=== PATIENT | female | born 1985 ===

== ENCOUNTER 2017-07-26 18:04 | Emergency (ER) | payer SELFPAY ==
[2017-07-26 18:12] VITALS: BP 140/96; PULSE 78; RESP 20; TEMP 98.1; O2SAT 98
--- NOTE | 2017-07-26 20:15 | C.PDOC ---
History Of Present Illness 31 y/o female presents to the ED complaining of right foot pain, onset today. Patient states she tripped and fell earlier today at work. She is ambulatory but pain worsens with movement. No changes in sensation or focal weakness. Time Seen by Provider: 07/26/17 18:17 Chief Complaint (Nursing): Lower Extremity Problem/Injury History Per: Patient History/Exam Limitations: no limitations Onset/Duration Of Symptoms: Hrs Current Symptoms Are (Timing): Still Present Past Medical History Reviewed: Historical Data, Nursing Documentation, Vital Signs Vital Signs: Last Vital Signs Temp 98.1 F 07/26/17 18:07 Pulse 78 07/26/17 18:07 Resp 20 07/26/17 20:29 BP 140/96 H 07/26/17 18:07 Pulse Ox 98 07/26/17 20:23 - Medical History PMH: No Chronic Diseases Surgical History: Tonsillectomy Family History: States: No Known Family Hx - Social History Hx Tobacco Use: No Hx Alcohol Use: Yes Hx Substance Use: No - Immunization History Hx Tetanus Toxoid Vaccination: No Hx Influenza Vaccination: No Hx Pneumococcal Vaccination: No Review Of Systems Except As Marked, All Systems Reviewed And Found Negative. Musculoskeletal: Positive for: Foot Pain Neurological: Negative for: Weakness, Numbness Physical Exam - Physical Exam Appears: Non-toxic, No Acute Distress Skin: Normal Color, Warm, Dry Head: Atraumatic, Normacephalic Eye(s): bilateral: Normal Inspection, PERRL, EOMI Oral Mucosa: Moist Chest: Symmetrical Respiratory: No Accessory Muscle Use Extremity: Normal ROM, Tenderness (to right medial foot), No Deformity, No Swelling (or ecchymosis) Pulses: Left Dorsalis Pedis: Normal, Right Dorsalis Pedis: Normal Neurological/Psych: Oriented x3, Normal Speech, Normal Motor, Normal Sensation ED Course And Treatment O2 Sat by Pulse Oximetry: 98 (RA) Pulse Ox Interpretation: Normal - Other Rad XR R FOOT X-Ray: Interpreted by Me, Viewed By Me Interpretation: No fracture, no dislocation Progress Note: X-ray obtained and is negative. Patient given ortho shoe and crutches. Stable for d/c home. Referred to podiatry clinic for further evaluation. Disposition Counseled Patient/Family Regarding: Studies Performed, Diagnosis, Need For Followup, Rx Given - Disposition Referrals: Timi Brown DPM [Staff Provider] - Disposition: HOME/ ROUTINE Disposition Time: 20:12 Condition: STABLE Additional Instructions: Follow up with Fire Apparatus Sprinkler Inspector within 1-2 days. Return to ED if feel worse. 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 - Scribe Statement The provider has reviewed the documentation as recorded by the Scribe (Patrizia Cohen) All medical record entries made by the Scribe were at my direction and personally dictated by me. I have reviewed the chart and agree that the record accurately reflects my personal performance of the history, physical exam, medical decision making, and the department course for this patient. I have also personally directed, reviewed, and agree with the discharge instructions and disposition.
--- NOTE | 2017-07-27 08:33 | RAD ---
PROCEDURE: Right Foot Radiographs. HISTORY: injury COMPARISON: None. FINDINGS: BONES: Normal. No fracture. JOINTS: Normal. SOFT TISSUES: Normal. OTHER FINDINGS: None. IMPRESSION: Normal right foot radiographs.
== END 2017-07-26 20:29 | disposition home or self-care (01) ==
LOC: C.ER 18:04
DX: S93.601A Unspecified sprain of right foot, initial encounter (principal); W01.0XXA Fall on same level from slipping, tripping and stumbling without subsequent striking against object, initial encounter; Y92.89 Other specified places as the place of occurrence of the external cause; Y99.0 Civilian activity done for income or pay

== ENCOUNTER 2017-08-15 16:36 | Emergency (ER) | payer SELFPAY ==
[2017-08-15 16:55] VITALS: BP 129/85; PULSE 93; RESP 16; TEMP 98.4; O2SAT 99
[2017-08-15] MEDS ORDERED: Naproxen 550 mg Tab PO STA (18:14)
[2017-08-15] MEDS ORDERED: Naproxen 550 mg Tab PO ONE (18:19)
--- NOTE | 2017-08-15 21:04 | C.PDOC ---
History Of Present Illness 31 y/o female presents to the ED with c/o lower back pain which began 4 days ago. Pain worse with movement. No radiation of pain. 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 Patient went to work four days ago, after which her pain began. Patient urinary/bowel incontinence, pain with urination, extremity numbness/ weakness, or recent falls. Time Seen by Provider: 08/15/17 17:44 Chief Complaint (Nursing): Back Pain History Per: Patient History/Exam Limitations: no limitations Onset/Duration Of Symptoms: Days Current Symptoms Are (Timing): Still Present Quality Of Discomfort: "Pain" Previous Symptoms: Back Pain Associated Symptoms: denies: Incontinence, New Weakness, New Numbness Additional History Per: Patient Past Medical History Reviewed: Historical Data, Nursing Documentation, Vital Signs Vital Signs: Last Vital Signs Temp 98.4 F 08/15/17 16:53 Pulse 93 H 08/15/17 16:53 Resp 16 08/15/17 16:53 BP 129/85 08/15/17 16:53 Pulse Ox 99 08/15/17 21:07 - Medical History PMH: No Chronic Diseases Surgical History: Tonsillectomy Family History: States: Unknown Family Hx - Social History Hx Tobacco Use: No Hx Alcohol Use: Yes Hx Substance Use: No - Immunization History Hx Tetanus Toxoid Vaccination: No Hx Influenza Vaccination: No Hx Pneumococcal Vaccination: No Review Of Systems Constitutional: Negative for: Fever, Chills Genitourinary: Negative for: Dysuria, Incontinence Musculoskeletal: Positive for: Back Pain Neurological: Negative for: Weakness, Numbness Physical Exam - Physical Exam Appears: Non-toxic, No Acute Distress Skin: Normal Color, Warm, Dry Head: Atraumatic, Normacephalic Eye(s): bilateral: Normal Inspection, EOMI Nose: Normal Oral Mucosa: Moist Neck: Normal ROM, Supple, Other ((+) b/l trapezius tenderness) Chest: Symmetrical, No Deformity, No Tenderness Cardiovascular: Rhythm Regular Respiratory: Normal Breath Sounds, No Accessory Muscle Use Back: No CVA Tenderness, No Vertebral Tenderness, Paraspinal Tenderness (b/l paralumbar tenderness) Extremity: Normal ROM, Capillary Refill (less than 2 seconds ) Neurological/Psych: Oriented x3, Normal Speech, Normal Cognition, Normal Sensation Gait: Steady ED Course And Treatment O2 Sat by Pulse Oximetry: 99 (on RA) Pulse Ox Interpretation: Normal Progress Note: Flexeril PO and Naproxen PO administered. Offered XR, pt declines. Patient is resting comfortably, no fever, no bony tenderness, no numbness, no weakness, or abdominal pain. Patient is ambulatory in the emergency department with no signs of discomfort. Patient was advised to follow up with their physician in 1-2 days. Disposition - Disposition Referrals: [facility] at [facility] [Outside] Disposition: HOME/ ROUTINE Disposition Time: 16:30 Condition: STABLE Additional Instructions: Follow up with PMD in 1-2 days. Return to ER if symptoms persist or worsen. 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 - Scribe Statement The provider has reviewed the documentation as recorded by the Scribe (She Pena) All medical record entries made by the Scribe were at my direction and personally dictated by me. I have reviewed the chart and agree that the record accurately reflects my personal performance of the history, physical exam, medical decision making, and the department course for this patient. I have also personally directed, reviewed, and agree with the discharge instructions and disposition.
== END 2017-08-15 18:36 | disposition home or self-care (01) ==
LOC: C.ER 16:36
DX: S39.012A Strain of muscle, fascia and tendon of lower back, initial encounter (principal); X50.0XXA Overexertion from strenuous movement or load, initial encounter; Y92.89 Other specified places as the place of occurrence of the external cause

== ENCOUNTER 2017-11-01 17:36 | Emergency (ER) | payer MEDICAID, OTHER ==
[2017-11-01 17:49] VITALS: BP 145/95; PULSE 99; RESP 20; TEMP 99; O2SAT 98
--- NOTE | 2017-11-01 17:57 | C.PDOC ---
History Of Present Illness 31 y/o female c/o white vaginal discharge for 2-3 days. reports she is sexually active with one partner and uses condoms. no urinary symptoms, no abdominal pain. no fever or chills. Time Seen by Provider: 11/01/17 17:51 Chief Complaint (Nursing): Female Genitourinary History Per: Patient History/Exam Limitations: no limitations Onset/Duration Of Symptoms: Days Current Symptoms Are (Timing): Still Present Past Medical History Reviewed: Historical Data, Nursing Documentation, Vital Signs Vital Signs: Last Vital Signs Temp 99 F 11/01/17 17:46 Pulse 99 H 11/01/17 17:46 Resp 20 11/01/17 17:46 BP 145/95 H 11/01/17 17:46 Pulse Ox 98 11/02/17 12:08 - Medical History PMH: No Chronic Diseases Surgical History: Tonsillectomy Family History: States: No Known Family Hx - Social History Hx Tobacco Use: No Hx Alcohol Use: Yes Hx Substance Use: No - Immunization History Hx Tetanus Toxoid Vaccination: No Hx Influenza Vaccination: No Hx Pneumococcal Vaccination: No Review Of Systems Constitutional: Negative for: Fever, Chills Gastrointestinal: Negative for: Nausea, Vomiting, Abdominal Pain Genitourinary: Positive for: Vaginal Discharge. Negative for: Dysuria, Incontinence, Hematuria, Vaginal Bleeding Musculoskeletal: Negative for: Back Pain Skin: Negative for: Rash Physical Exam - Physical Exam Appears: Non-toxic, No Acute Distress Skin: Warm, Dry, No Rash Head: Atraumatic, Normacephalic Eye(s): bilateral: Normal Inspection Oral Mucosa: Moist Neck: Supple Chest: No Tenderness Cardiovascular: Rhythm Regular Respiratory: Normal Breath Sounds, No Rales, No Rhonchi, No Wheezing Gastrointestinal/Abdominal: Soft, No Tenderness, No Guarding, No Rebound Pelvic: No Vaginal Bleeding, Vaginal Discharge (scant white with mild fishy odor ), No Cervical Motion Tenderness, No Adnexal Tenderness, Other (chaperoned by ALANNA Kwok) Neurological/Psych: Oriented x3, Normal Speech, Normal Cognition ED Course And Treatment O2 Sat by Pulse Oximetry: 98 (RA) Pulse Ox Interpretation: Normal Medical Decision Making Medical Decision Making: pt with vag discharge x 2 days. mild fishy odor on exam, will tx for bv with gynecologist f/u Disposition Counseled Patient/Family Regarding: Studies Performed, Diagnosis, Need For Followup, Rx Given - Disposition Disposition: HOME/ ROUTINE Disposition Time: 19:20 Condition: GOOD Additional Instructions: Use metrogel as prescrbied in vagina at bedtime for 5 days. 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 - Scribe Statement The provider has reviewed the documentation as recorded by the Tavo Nickerson All medical record entries made by the Tavo were at my direction and personally dictated by me. I have reviewed the chart and agree that the record accurately reflects my personal performance of the history, physical exam, medical decision making, and the department course for this patient. I have also personally directed, reviewed, and agree with the discharge instructions and disposition.
[2017-11-01 18:43] LABS: SQUAMOUS EPITHIAL 32 /hpf (0-5); URINE BACTERIA OCC (<OCC); URINE BILIRUBIN NEGATIVE (NEGATIVE); URINE BLOOD 2+ (NEGATIVE); URINE CLARITY Hazy (Clear); URINE COLOR Amber (YELLOW); URINE GLUCOSE (UA) NORMAL (Normal); URINE LEUKOCYTE ESTERASE NEG Leu/uL (Negative); URINE PROTEIN 1+ mg/dL (NEGATIVE)
== END 2017-11-01 19:34 | disposition home or self-care (01) ==
LOC: C.ER 17:36
DX: N76.0 Acute vaginitis (principal)

== ENCOUNTER 2018-02-13 14:22 | Emergency (ER) | payer MEDICAID, OTHER ==
[2018-02-13 14:47] VITALS: O2SAT 100
--- NOTE | 2018-02-13 15:22 | C.PDOC ---
History Of Present Illness 32 yo female w/o significant PMHx come inf or evaluation of cold sx associated with low grade fever, nasal congestion, sore throat, dry cough developed for past 3-4 days. Pt reports, " since yesterday developed some chest tightness on cough since today AM". Otherwise, pt denies high fever, chills, headache, dizziness, neck pain, drooling, dysphagia, dyspnea, SOB, wheezing, abd. pain, V/D, UTi sx. Ambulate to Ed for evaluation, not in any apparent distress. Time Seen by Provider: 02/13/18 14:57 Chief Complaint (Nursing): Cough, Cold, Congestion History Per: Patient Past Medical History Reviewed: Historical Data, Nursing Documentation, Vital Signs Vital Signs: Last Vital Signs Temp 98.4 F 02/13/18 14:43 Pulse 71 02/13/18 14:43 Resp 18 02/13/18 14:43 BP 137/88 02/13/18 14:43 Pulse Ox 100 02/13/18 14:43 - Medical History PMH: Bronchitis Surgical History: Tonsillectomy Family History: States: Unknown Family Hx - Social History Hx Tobacco Use: No Hx Alcohol Use: Yes Hx Substance Use: No - Immunization History Hx Tetanus Toxoid Vaccination: No Hx Influenza Vaccination: No Hx Pneumococcal Vaccination: No Review Of Systems Except As Marked, All Systems Reviewed And Found Negative. Constitutional: Positive for: Malaise. Negative for: Fever, Chills ENT: Positive for: Nose Congestion, Throat Pain. Negative for: Ear Discharge, Nose Discharge, Throat Swelling Cardiovascular: Negative for: Chest Pain, Palpitations Respiratory: Positive for: Cough. Negative for: Shortness of Breath, Wheezing Gastrointestinal: Negative for: Nausea, Vomiting, Abdominal Pain, Diarrhea Genitourinary: Negative for: Dysuria Musculoskeletal: Negative for: Neck Pain Skin: Negative for: Rash Neurological: Negative for: Headache, Dizziness Physical Exam - Physical Exam Appears: Well, Non-toxic, No Acute Distress Skin: Normal Color, Warm, Dry, No Rash Head: Normacephalic Eye(s): bilateral: PERRL Nose: No Flaring, Discharge (scant clear with congestion) Oral Mucosa: Moist, No Drooling Tongue: Normal Appearing Lips: Normal Appearing Throat: Erythema (mild B/L), No Exudate, No Drooling Neck: Trachea Midline, Supple Cardiovascular: Rhythm Regular, No Murmur, No JVD Respiratory: No Decreased Breath Sounds, No Accessory Muscle Use, No Stridor, No Wheezing Gastrointestinal/Abdominal: Soft, No Tenderness, No Distention, No Guarding, No Rebound Back: No CVA Tenderness Extremity: Normal ROM, No Deformity, No Swelling Neurological/Psych: Oriented x3, Normal Speech ED Course And Treatment O2 Sat by Pulse Oximetry: 100 Pulse Ox Interpretation: Normal - Radiology CXR: Interpreted by Me, Read By Radiologist CXR Interpretation: Yes: No Acute Disease Progress Note: On re-eval, pt appears is afebrile, hemodynamicaly stable. NOn- toxic. PuslEOx 100% RA. neck: Supple, (-) meningeal sign. ENT: no acute findings. Lungs: CTA B/L, BS equal B/L. Abd: benign, (-) guaridng, (-) rebound. back: (-) CVA tenderness. neuorlogicaly intact. CXR- normal study. Pt has clinical findings c/w acute bronchitis. Pt advised. ref. to f/u with PMD In2 -3 days for re-eavl. return if any worsening or new changes. Disposition Counseled Patient/Family Regarding: Studies Performed, Diagnosis, Need For Followup, Rx Given - Disposition Referrals: [facility] [Outside] Disposition: HOME/ ROUTINE Disposition Time: 15:21 Condition: STABLE Additional Instructions: Encourage fluids take medication as prescribed Follow up with PMD in2 -3 days for re-evaluation. return to ED if any worsening or new changes. Prescriptions: Azithromycin [Zithromax] 250 mg PO DAILY #4 tab Benzonatate [Tessalon Perle] 100 mg PO TID #14 capsule Prednisone [Deltasone] 20 mg PO DAILY #3 tablet Instructions: Acute Bronchitis Forms: [id number] (Irish) - Clinical Impression Clinical Impression: Bronchitis
--- NOTE | 2018-02-13 15:47 | RAD ---
HISTORY: Cough COMPARISON: Chest x-ray performed 04/06/16 TECHNIQUE: Chest PA and lateral FINDINGS: Examination limited by habitus. LUNGS: No focal consolidation. Please note that chest x-ray has limited sensitivity for the detection of pulmonary masses. PLEURA: No significant pleural effusion identified. No definite pneumothorax . CARDIOVASCULAR: Heart size appears within normal limits. No atherosclerotic calcification present. OSSEOUS STRUCTURES: Mild degenerative changes. VISUALIZED UPPER ABDOMEN: Unremarkable. OTHER FINDINGS: None. IMPRESSION: No focal consolidation identified.
[2018-02-13 16:05] VITALS: BP 130/86; PULSE 67; RESP 20; TEMP 97.6
== END 2018-02-13 16:08 | disposition home or self-care (01) ==
LOC: C.ER 14:22
DX: J20.9 Acute bronchitis, unspecified (principal)

== ENCOUNTER 2018-04-09 11:38 | Emergency (ER) | payer OTHER ==
[2018-04-09 11:46] VITALS: BP 133/78; PULSE 79; RESP 20; TEMP 97.8; O2SAT 100
--- NOTE | 2018-04-09 12:30 | C.PDOC ---
History Of Present Illness 32-year-old female presents to the ED for evaluation of sore throat which began four days ago. Patient reports sick contact with individuals in her house who have been positive for strep throat. She also reports associated fever and chills. Otherwise, patient denies chest pain, cough, shortness of breath, abdominal pain, vomiting, diarrhea. Time Seen by Provider: 04/09/18 11:46 Chief Complaint (Nursing): ENT Problem History Per: Patient History/Exam Limitations: no limitations Onset/Duration Of Symptoms: Days (4) Current Symptoms Are (Timing): Still Present Location Of Pain: Throat Sick Contacts (Context): Family Member(s) Associated Symptoms: Fever, Chills, Sore Throat. denies: Cough, Vomiting, D iarrhea Additional History Per: Patient Past Medical History Reviewed: Historical Data, Nursing Documentation, Vital Signs Vital Signs: Last Vital Signs Temp 97.8 F 04/09/18 11:46 Pulse 79 04/09/18 11:46 Resp 20 04/09/18 11:46 BP 133/78 04/09/18 11:46 Pulse Ox 100 04/09/18 11:46 - Medical History PMH: Bronchitis Surgical History: Tonsillectomy Family History: States: Unknown Family Hx - Social History Hx Tobacco Use: No Hx Alcohol Use: Yes Hx Substance Use: No - Immunization History Hx Tetanus Toxoid Vaccination: No Hx Influenza Vaccination: No Hx Pneumococcal Vaccination: No Review Of Systems Constitutional: Positive for: Fever, Chills ENT: Positive for: Throat Pain Cardiovascular: Negative for: Chest Pain Respiratory: Negative for: Cough, Shortness of Breath Gastrointestinal: Negative for: Vomiting, Diarrhea Physical Exam - Physical Exam Appears: Non-toxic, No Acute Distress Skin: Normal Color, Warm, Dry Head: Atraumatic, Normacephalic Eye(s): bilateral: Normal Inspection Ear(s): Bilateral: Normal Nose: Normal, No Discharge Oral Mucosa: Moist Throat: Erythema (mild), No Exudate Neck: Supple Lymphatic: Adenopathy (cervical) Chest: Symmetrical, No Deformity, No Tenderness Cardiovascular: Rhythm Regular, No Murmur Respiratory: Normal Breath Sounds, No Rales, No Rhonchi, No Wheezing Extremity: Normal ROM Neurological/Psych: Oriented x3, Normal Speech, Normal Cognition ED Course And Treatment O2 Sat by Pulse Oximetry: 100 (on RA) Pulse Ox Interpretation: Normal Medical Decision Making Medical Decision Making: Progress: Zithromax PO and Prednisone PO given. Disposition - Disposition Referrals: [facility] at [facility] [Outside] Disposition: HOME/ ROUTINE Disposition Time: 12:27 Condition: STABLE Additional Instructions: Follow up with the medical doctor/clinic within 1-2 days. Return if worsened. 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 - Scribe Statement The provider has reviewed the documentation as recorded by the Scribe (She Pena) All medical record entries made by the Scribe were at my direction and personally dictated by me. I have reviewed the chart and agree that the record accurately reflects my personal performance of the history, physical exam, medical decision making, and the department course for this patient. I have also personally directed, reviewed, and agree with the discharge instructions and disposition.
== END 2018-04-09 12:40 | disposition home or self-care (01) ==
LOC: C.ER 11:38
DX: J02.9 Acute pharyngitis, unspecified (principal)

== ENCOUNTER 2018-05-02 16:31 | Emergency (ER) | payer OTHER ==
[2018-05-02 16:40] VITALS: BP 132/86; PULSE 78; RESP 18; TEMP 98; O2SAT 98
--- NOTE | 2018-05-02 17:44 | C.PDOC ---
History Of Present Illness 32 y/o female presents to the ED complaining of cough and congestion. Patient was seen here on 04/09, diagnosed with throat infection, and treated with azithromycin and oral prednisone course. Patient now complains of SOB for the past week, with associated dry cough, congestion, and sinus headache. Stated she felt better after the antibiotics and then symptoms recurred. She denies any fever, chills, chest pain, nausea, vomiting, or other associated symptoms. She reports + sick contacts at home. Patient is not taking any medications for symptom relief. Time Seen by Provider: 05/02/18 16:53 Chief Complaint (Nursing): Cough, Cold, Congestion History Per: Patient History/Exam Limitations: no limitations Onset/Duration Of Symptoms: Days (7) Current Symptoms Are (Timing): Still Present Location Of Pain: Sinus/es Sick Contacts (Context): Family Member(s) Associated Symptoms: Cough, Sinus Drainage, Nasal Congestion. denies: Fever, Chills, Sore Throat, Sputum, Neck Pain, Myalgias, Nausea, Vomiting, Diarrhea Severity: Moderate Past Medical History Reviewed: Historical Data, Nursing Documentation, Vital Signs Vital Signs: Last Vital Signs Temp 98 F 05/02/18 16:36 Pulse 78 05/02/18 16:36 Resp 18 05/02/18 16:36 BP 132/86 05/02/18 16:36 Pulse Ox 98 05/02/18 16:36 - Medical History PMH: Bronchitis Surgical History: Tonsillectomy Family History: States: Unknown Family Hx - Social History Hx Tobacco Use: No Hx Alcohol Use: Yes Hx Substance Use: No - Immunization History Hx Tetanus Toxoid Vaccination: Yes Hx Influenza Vaccination: No Hx Pneumococcal Vaccination: No Review Of Systems Constitutional: Negative for: Fever, Chills, Weakness ENT: Positive for: Nose Discharge, Nose Congestion. Negative for: Ear Pain, Throat Pain Cardiovascular: Negative for: Chest Pain Respiratory: Positive for: Cough, Shortness of Breath Gastrointestinal: Negative for: Nausea, Vomiting, Abdominal Pain, Diarrhea Musculoskeletal: Negative for: Neck Pain Skin: Negative for: Rash Neurological: Positive for: Headache (frontal). Negative for: Dizziness Physical Exam - Physical Exam Appears: Well, Non-toxic, No Acute Distress, Other (Vitals stable, afebrile) Skin: Normal Color, Warm, Dry Head: Atraumatic, Normacephalic, No Tenderness (severe turbinate hypertrophy on the left; moderate hypertrophy on right) Nose: Discharge (clear), Other (severe turbinate hypertrophy on left; moderate turbinate hypertrophy on right) Oral Mucosa: Moist Throat: No Erythema, No Exudate Neck: Normal ROM, Supple Lymphatic: Other (no cervical LAD) Chest: Symmetrical Cardiovascular: Rhythm Regular Respiratory: Normal Breath Sounds, No Wheezing Gastrointestinal/Abdominal: Soft, No Tenderness Neurological/Psych: Oriented x3, Normal Speech, Normal Cognition, Normal Sensation ED Course And Treatment O2 Sat by Pulse Oximetry: 98 Medical Decision Making Medical Decision Making: Initial Plan: Patient given 60mg Sudafed tab in the ED. Progress: On re-eval, patient reports improvement after taking Sudafed. Patient will be discharged home with rx for Sudafed and Normal Saline rinses for the congestion and sinus headache. Instructed patient to return for worsening or persistent symptoms. Advised to f ollow up with PMD. Patient verbalizes understanding and is in agreement with discharge plan. Disposition Counseled Patient/Family Regarding: Diagnosis, Need For Followup, Rx Given - Disposition Referrals: [facility] [Outside] Disposition: HOME/ ROUTINE Disposition Time: 18:02 Condition: IMPROVED Additional Instructions: CHANTELL GARRISON, thank you for letting us take care of you today. Your prov ider was Navi Barney MD/Saniya Wilson PA-C and you were treated for SOB/THROAT PAIN. The emergency medical care you received today was directed at your acute symptoms. If you were prescribed any medication, please fill it and take as directed. It may take several days for your symptoms to resolve. Return to the Emergency Department if your symptoms worsen, do not improve, or if you have any other problems. Please contact your doctor or call one of the physicians/clinics you have been referred to that are listed on the Patient Visit Information form that is included in your discharge packet. Bring any paperwork you were given at discharge with you along with any medications you are taking to your follow up visit. Our treatment cannot replace ongoing medical care by a primary care provider outside of the emergency department. Thank you for allowing the [facility] team to be part of your care today. Prescriptions: Pseudoephedrine [Sudafed Tab] 30 mg PO BID PRN #10 tab PRN Reason: Nasal Congestion Sodium Chloride/Sodium Bicarb [Nasa Mist Saline Constantia] 1 spray NS BID #1 bot Instructions: Sinus Headache (DC) Forms: [facility] (Mauritian), Work Excuse - Clinical Impression Clinical Impression: Nasal congestion, Sinus headache - PA / SHELF [employer] / Resident Statement MD/DO has reviewed & agrees with the documentation as recorded. - Scribe Statement The provider has reviewed the documentation as recorded by the Scribe Patrizia Cohen All medical record entries made by the Scribe were at my direction and personally dictated by me. I have reviewed the chart and agree that the record accurately reflects my personal performance of the history, physical exam, medical decision making, and the department course for this patient. I have also personally directed, reviewed, and agree with the discharge instructions and disposition.
== END 2018-05-02 18:59 | disposition home or self-care (01) ==
LOC: C.ER 16:31
DX: R09.81 Nasal congestion (principal); R51 Headache